=== PATIENT | male | born 1965 | race Caucasian/White ===

== ENCOUNTER 2017-12-06 23:15 | Emergency (ER) | payer OTHER ==
[2017-12-07] MEDS: IBUPROFEN 600 MG TAB PO (02:02)
[2017-12-07] MEDS: CIPROFLOXACIN 500 MG TAB PO (02:02)
[2017-12-07] MEDS: DIPHTH/TET/ACEL PERTUSS (ADULT) 0.5 ML VIAL IM* (02:03)
== END 2017-12-07 02:35 | disposition home or self-care (01) ==
LOC: FTE 23:15
DX: S91.332A Puncture wound without foreign body, left foot, initial encounter (principal); W45.0XXA Nail entering through skin, initial encounter; Y92.89 Other specified places as the place of occurrence of the external cause; Z23 Encounter for immunization
CPT/HCPCS: 90471; 90715; 99283-25